=== PATIENT | male | born 1985 | race American Indian/Alaskan Native ===

== ENCOUNTER 2019-08-01 04:42 | Emergency (ER) | payer SELFPAY | END 2019-08-01 04:55 | disposition left against medical advice (07) | LOC: ED 04:42 | DX: Z53.21 Procedure and treatment not carried out due to patient leaving prior to being seen by health care provider (principal) ==

== ENCOUNTER 2019-08-19 09:45 | Emergency (ER) | payer SELFPAY ==
[2019-08-19 10:08] VITALS: BP 147/97
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
== END 2019-08-19 13:35 | disposition home or self-care (01) ==
LOC: ED 09:45
DX: M25.511 Pain in right shoulder (principal); M54.2 Cervicalgia; M54.9 Dorsalgia, unspecified; F17.200 Nicotine dependence, unspecified, uncomplicated; F10.10 Alcohol abuse, uncomplicated; Z79.899 Other long term (current) drug therapy; V49.49XA Driver injured in collision with other motor vehicles in traffic accident, initial encounter; Y93.89 Activity, other specified; Y92.410 Unspecified street and highway as the place of occurrence of the external cause; Y99.8 Other external cause status
CPT/HCPCS: 72040; 72100